=== PATIENT | male | born 1985 | race African-American/Black ===

== ENCOUNTER 2016-07-26 17:54 | Emergency (ER) | payer OTHER | END 2016-07-26 20:30 | disposition home or self-care (01) | LOC: ER 17:54 | DX: K80.50 Calculus of bile duct without cholangitis or cholecystitis without obstruction (principal); R11.10 Vomiting, unspecified; G40.909 Epilepsy, unspecified, not intractable, without status epilepticus; F79 Unspecified intellectual disabilities; Z79.899 Other long term (current) drug therapy ==